=== PATIENT | male | born 1955 | race African-American/Black ===

== ENCOUNTER 2020-12-01 16:19 | Observation (INO) ==
[2020-12-01] MEDS ORDERED: MVI, adult with vitamin K 10 ML, Folic Acid 1 MG, Thiamine (B-1) 200 MG in 0.9 % Sodi... IVC ONE (17:09)
[2020-12-01] MEDS ORDERED: Folic Acid 1 MG in 0.9 % Sodium Chloride 50 ML IVPB ONE (17:09)
[2020-12-01] MEDS ORDERED: Thiamine (B-1) 200 MG in 0.9 % Sodium Chloride 50 ML IVPB ONE (17:09)
[2020-12-01] MEDS ORDERED: 0.9 % Sodium Chloride 1,000 ML IVC ONE (17:09)
[2020-12-01 17:49] LABS: Basophils % 0.4 %; Eosinophils % 0.6 %; Hemoglobin 12.5 g/dL (12.9-16.9); Immature Granulocytes % 0.4 % (0-4); Lymphocytes # 0.3 K/mcL (0.6-4.6); Lymphocytes % 5.2 %; Mean Corpuscular HGB Conc 32.9 g/dL (31.6-35.5); Mean Corpuscular Hemoglobin 30.5 pg (28.0-33.3); Mean Corpuscular Volume 92.7 fL (83.0-100.0); Mean Platelet Volume 11.7 fL (9.4-12.4); Monocytes # 0.1 K/mcL (0.0-1.3); Monocytes % 1.6 %; Neutrophils # 4.6 K/mcL (1.6-8.9); Segmented Neutrophils % 91.8 %
[2020-12-01 18:03] LABS: Alanine Aminotransferase 43 Units/L (7-52); Albumin 3.8 g/dL (3.5-5.7); Albumin/Globulin Ratio 0.9 (1.1-2.2); Alkaline Phosphatase 121 Units/L (34-104); Aspartate Amino Transferase 52 Units/L (13-39); BUN/Creatinine Ratio 16 (6-26); Bilirubin,Total 2.1 mg/dL (0.3-1.0); Blood Urea Nitrogen 16 mg/dL (8-23); Carbon Dioxide 27 mEq/L (23-29); Chloride 103 mEq/L (98-107); Ethanol < 10 mg/dL (Less than 10); Globulin 4.2 g/dL (2.4-3.5); Glucose 84 mg/dL (70-105); Lipase 19 Units/L (11-82); Osmolality,Calculated 286 (280-300); Potassium 3.3 mEq/L (3.5-5.1); Sodium 138 mEq/L (136-145); eGFR For African Americans > 60 (> 60); eGFR For Non-African Americans > 60 (> 60)
[2020-12-01 18:28] LABS: Platelet Count 88 K/mcL (140-400); Platelet Estimate Decreased (Normal)
[2020-12-01 18:37] LABS: Bacteria,Urine Few per hpf (None-Few); Bilirubin,Urine Negative (Negative); Blood,Urine Trace (Negative); Clarity,Urine Clear (Clear); Color,Urine Light-Yellow (Yellow); Glucose,Urine (UA) Normal (Normal); Ketones,Urine Negative (Negative); Leukocyte Esterase,Urine Negative (Negative); Nitrite,Urine Negative (Negative); Protein,Urine Negative (Neg-Trace); Squamous Epithelial Cell,Urine Few per hpf (None-Few); Urobilinogen,Urine Normal (Normal); WBC,Urine 0-3 per hpf (0-3)
[2020-12-01 18:42] LABS: Amphetamine Screen,Urine Negative ng/mL (Cutoff=1000); Barbiturate Screen,Urine Negative ng/mL (Cutoff=200); Benzodiazepines Screen,Urine Negative ng/mL (Cutoff=200); Cannabinoid Screen,Urine Negative ng/mL (Cutoff = 50); Cocaine Screen,Urine Negative ng/mL (Cutoff= 300); Opiate Screen,Urine Negative ng/mL (Cutoff=300); Phencyclidine Screen,Urine Negative ng/mL (Cutoff=25)
[2020-12-01] MEDS ORDERED: Ondansetron ODT 4 MG TAB.RAPDIS SL PRN (20:54)
[2020-12-01] MEDS ORDERED: Naloxone 0.4 MG/ML INJ IVP PRN (20:54)
[2020-12-01] MEDS ORDERED: Melatonin 3 MG TABLET PO PRN (20:54)
[2020-12-01] MEDS ORDERED: *HR* Promethazine 25 MG/ML VIAL IM PRN (20:54)
[2020-12-01] MEDS ORDERED: *HR* LORazepam 2 MG/ML VIAL IVP PRN ×3 (20:55)
[2020-12-02 03:38] LABS: BUN/Creatinine Ratio 17 (6-26); Blood Urea Nitrogen 15 mg/dL (8-23); Carbon Dioxide 24 mEq/L (23-29); Chloride 107 mEq/L (98-107); Glucose 105 mg/dL (70-105); Osmolality,Calculated 281 (280-300); Potassium 4.1 mEq/L (3.5-5.1); Sodium 135 mEq/L (136-145); eGFR For African Americans > 60 (> 60); eGFR For Non-African Americans > 60 (> 60)
[2020-12-02] MEDS ORDERED: Thiamine (B-1) 100 MG, Folic Acid 1 MG, MVI, adult with vitamin K 10 ML in 0.9 % Sodi... IVPB SCH (09:00)
[2020-12-02 11:16] LABS: INR 1.2; Prothrombin Time 14.1 Seconds (9.4-12.1)
[2020-12-02 11:25] LABS: Albumin 3.2 g/dL (3.5-5.7); Albumin/Globulin Ratio 0.9 (1.1-2.2); Bilirubin,Direct 0.9 mg/dL (0.0-0.2); Bilirubin,Indirect 1.5 mg/dL (0.0-1.0); Bilirubin,Total 2.4 mg/dL (0.3-1.0); Globulin 3.6 g/dL (2.4-3.5); Total Protein 6.8 g/dL (6.4-8.9)
[2020-12-02] MEDS: carvediloL 6.25 MG TABLET PO SCH (19:37)
[2020-12-02] MEDS: levETIRAcetam 250 MG TABLET PO SCH (19:38)
[2020-12-02] MEDS: *HR* Digoxin 0.125 MG TABLET PO SCH (19:38)
[2020-12-03 03:06] LABS: Hematocrit 29.3 % (37.5-50.1); Mean Corpuscular HGB Conc 33.1 g/dL (31.6-35.5); Mean Corpuscular Hemoglobin 30.3 pg (28.0-33.3); Mean Corpuscular Volume 91.6 fL (83.0-100.0); Mean Platelet Volume 11.8 fL (9.4-12.4); Red Cell Distribution Width 11.3 % (11.5-14.5)
[2020-12-03 03:07] LABS: Hemoglobin 9.7 g/dL (12.9-16.9); Platelet Count 86 K/mcL (140-400); White Blood Count 8.2 K/mcL (4.3-11.1)
[2020-12-03 03:23] LABS: BUN/Creatinine Ratio 17 (6-26); Blood Urea Nitrogen 14 mg/dL (8-23); Calcium 8.6 mg/dL (8.6-10.3); Carbon Dioxide 24 mEq/L (23-29); Chloride 107 mEq/L (98-107); Glucose 85 mg/dL (70-105); Magnesium 1.4 mg/dL (1.6-2.6); Osmolality,Calculated 284 (280-300); Phosphorous 2.8 mg/dL (2.7-4.5); Potassium 3.9 mEq/L (3.5-5.1); Sodium 137 mEq/L (136-145); eGFR For African Americans > 60 (> 60); eGFR For Non-African Americans > 60 (> 60)
[2020-12-03] MEDS: Nicotine 21 MG PATCH.TD24 TD SCH (08:57)
[2020-12-03] MEDS: *HR* Digoxin 0.125 MG TABLET PO SCH (08:57)
[2020-12-03] MEDS: levETIRAcetam 250 MG TABLET PO SCH ×2 (08:58→19:48)
[2020-12-03] MEDS: carvediloL 6.25 MG TABLET PO SCH ×2 (08:58→16:05)
[2020-12-03] MEDS: Aspirin Enteric Coated 81 MG Tablet PO SCH (08:58)
[2020-12-03] MEDS ORDERED: lisinopriL 10 MG TABLET PO SCH (09:00)
[2020-12-04 06:32] LABS: Hemoglobin 10.2 g/dL (12.9-16.9); Immature Platelets 7.8 % (1.1-6.1); Mean Corpuscular Hemoglobin 30.6 pg (28.0-33.3); Mean Corpuscular Volume 90.1 fL (83.0-100.0); Red Blood Count 3.33 M/mcL (4.19-5.50); Red Cell Distribution Width 11.1 % (11.5-14.5); White Blood Count 6.4 K/mcL (4.3-11.1)
[2020-12-04 06:53] LABS: BUN/Creatinine Ratio 15 (6-26); Blood Urea Nitrogen 12 mg/dL (8-23); Calcium 9.2 mg/dL (8.6-10.3); Carbon Dioxide 25 mEq/L (23-29); Chloride 108 mEq/L (98-107); Glucose 89 mg/dL (70-105); Magnesium 1.8 mg/dL (1.6-2.6); Osmolality,Calculated 287 (280-300); Phosphorous 2.6 mg/dL (2.7-4.5); Potassium 3.6 mEq/L (3.5-5.1); Sodium 139 mEq/L (136-145); eGFR For African Americans > 60 (> 60); eGFR For Non-African Americans > 60 (> 60)
[2020-12-04 07:00] LABS: % Iron Saturation 84 % (20-55); Iron 194 mcg/dL (65-175); Transferrin 164 mg/dL (203-362)
[2020-12-04 07:05] LABS: Ferritin 1058 ng/mL (20-250)
[2020-12-04 07:13] LABS: Folate > 22.3 ng/mL (3.0-16.0); Vitamin B12 504 pg/mL (250-1100)
[2020-12-04] MEDS: Nicotine 21 MG PATCH.TD24 TD SCH (07:42)
[2020-12-04] MEDS: Folic Acid 1 MG TABLET PO SCH (07:43)
[2020-12-04] MEDS: *HR* Digoxin 0.125 MG TABLET PO SCH (07:43)
[2020-12-04] MEDS: Thiamine (B-1) 100 MG TABLET PO SCH (07:44)
[2020-12-04] MEDS: Vitamin B Complex/Vit C/Vit E 1 EACH TABLET PO SCH (07:44)
[2020-12-04] MEDS: Furosemide 20 MG TABLET PO SCH (07:44)
[2020-12-04] MEDS: Aspirin Enteric Coated 81 MG Tablet PO SCH (07:44)
[2020-12-04] MEDS: levETIRAcetam 250 MG TABLET PO SCH ×2 (07:44→22:01)
[2020-12-04] MEDS: carvediloL 25 MG TABLET PO SCH ×2 (08:08→17:28)
[2020-12-04] MEDS: lisinopriL 20 MG TABLET PO SCH (08:09)
[2020-12-05 01:45] LABS: Hematocrit 31.4 % (37.5-50.1); Hemoglobin 10.5 g/dL (12.9-16.9); Immature Platelets 7.7 % (1.1-6.1); Mean Corpuscular HGB Conc 33.4 g/dL (31.6-35.5); Mean Corpuscular Hemoglobin 30.6 pg (28.0-33.3); Mean Corpuscular Volume 91.5 fL (83.0-100.0); Mean Platelet Volume 11.6 fL (9.4-12.4); Red Blood Count 3.43 M/mcL (4.19-5.50); Red Cell Distribution Width 10.9 % (11.5-14.5); White Blood Count 7.2 K/mcL (4.3-11.1)
[2020-12-05 02:04] LABS: BUN/Creatinine Ratio 15 (6-26); Blood Urea Nitrogen 12 mg/dL (8-23); Calcium 9.4 mg/dL (8.6-10.3); Carbon Dioxide 24 mEq/L (23-29); Chloride 107 mEq/L (98-107); Glucose 85 mg/dL (70-105); Osmolality,Calculated 283 (280-300); Potassium 4.1 mEq/L (3.5-5.1); Sodium 137 mEq/L (136-145); eGFR For African Americans > 60 (> 60); eGFR For Non-African Americans > 60 (> 60)
[2020-12-05] MEDS: levETIRAcetam 250 MG TABLET PO SCH ×2 (08:28→21:10)
[2020-12-05] MEDS: Furosemide 20 MG TABLET PO SCH (08:29)
[2020-12-05] MEDS: Vitamin B Complex/Vit C/Vit E 1 EACH TABLET PO SCH (08:29)
[2020-12-05] MEDS: Folic Acid 1 MG TABLET PO SCH (08:29)
[2020-12-05] MEDS: carvediloL 25 MG TABLET PO SCH ×2 (08:30→16:24)
[2020-12-05] MEDS: lisinopriL 20 MG TABLET PO SCH (08:30)
[2020-12-05] MEDS: Aspirin Enteric Coated 81 MG Tablet PO SCH (08:31)
[2020-12-05] MEDS: *HR* Digoxin 0.125 MG TABLET PO SCH (08:31)
[2020-12-05] MEDS: Thiamine (B-1) 100 MG TABLET PO SCH (08:31)
[2020-12-05] MEDS: Nicotine 21 MG PATCH.TD24 TD SCH (08:31)
[2020-12-05 22:27] VITALS: O2SAT 97
[2020-12-05] MEDS: Melatonin 3 MG TABLET PO ONE (23:34)
[2020-12-06] MEDS: Melatonin 3 MG TABLET PO ONE (00:55)
[2020-12-06 02:17] LABS: Adenovirus Not Detected (Not Detect); Bordetella Pertussis Not Detected (Not Detect); Chlamydophila pneumoniae Not Detected (Not Detect); Coronavirus 229E Not Detected (Not Detect); Coronavirus HKU1 Not Detected (Not Detect); Coronavirus NL63 Not Detected (Not Detect); Coronavirus OC43 Not Detected (Not Detect); Human Metapneumovirus Not Detected (Not Detect); Human Rhinovirus/Enterovirus Not Detected (Not Detect); Influenza A Subtype 2009 H1 Not Detected (Not Detect); Influenza B Not Detected (Not Detect); Mycoplasma pneumoniae Not Detected (Not Detect); Parainfluenza Virus 1 Not Detected (Not Detect); Parainfluenza Virus 2 Not Detected (Not Detect); Parainfluenza Virus 3 Not Detected (Not Detect); Parainfluenza Virus 4 Not Detected (Not Detect); Respiratory Syncytial Virus Not Detected (Not Detect); SARS-CoV-2 Not Detected (Not Detect)
[2020-12-06] MEDS: levETIRAcetam 250 MG TABLET PO SCH (07:33)
[2020-12-06] MEDS: lisinopriL 20 MG TABLET PO SCH (07:33)
[2020-12-06] MEDS: Thiamine (B-1) 100 MG TABLET PO SCH (07:33)
[2020-12-06] MEDS: Aspirin Enteric Coated 81 MG Tablet PO SCH (07:33)
[2020-12-06] MEDS: Folic Acid 1 MG TABLET PO SCH (07:33)
[2020-12-06] MEDS: Nicotine 21 MG PATCH.TD24 TD SCH (07:34)
[2020-12-06] MEDS: *HR* Digoxin 0.125 MG TABLET PO SCH (07:34)
[2020-12-06] MEDS: Furosemide 20 MG TABLET PO SCH (07:34)
[2020-12-06] MEDS: carvediloL 25 MG TABLET PO SCH (07:34)
[2020-12-06] MEDS: Vitamin B Complex/Vit C/Vit E 1 EACH TABLET PO SCH (07:34)
[2020-12-06 10:31] VITALS: BP 109/71; PULSE 81; TEMP 97.7
== END 2020-12-06 12:28 | disposition other institution (70) ==
LOC: EMEROOARM 16:19 → 3BNU 16:19 → SUATTDRO 20:24 → 3BNU 20:57
PROVIDERS: ADMIT Internal Medicine; ATTEND Internal Medicine